=== PATIENT | female | born 1970 | race Two or more races ===

== ENCOUNTER 2016-04-03 15:56 | Emergency (ER) | payer BC, OTHER ==
[~2016-04-03] VITALS: Ht 157.5 cm; Wt 62.6 kg
[~2016-04-03 15:56] MED LIST: SIMV20TA2 PO
[2016-04-03 16:22] VITALS: BP 135/84
[2016-04-03] MEDS ORDERED: ONDANSETRON 4 MG TAB.RAPDIS ONE (16:33)
[2016-04-03] MEDS ORDERED: ONDANSETRON 4 MG TAB.RAPDIS SL ONE (17:00)
== END 2016-04-03 16:43 | disposition home or self-care (01) ==
LOC: ER 15:58
DX: R11.10 Vomiting, unspecified (principal); E78.00 Pure hypercholesterolemia, unspecified
CPT/HCPCS: A4606; Q0162; Z7610